=== PATIENT | male | born 1960 | race Two or more races ===

== ENCOUNTER 2019-05-22 09:00 | Emergency (ER) | payer OTHER ==
[2019-05-22 09:13] VITALS: BP 156/96
--- NOTE | 2019-05-22 09:18 | UC ---
Skin Complaint HPI - HPI Summary HPI Summary: Removed tick from chest yesterday; here for evaluation due to persistent erythema. Believes that the tick was attached overnight. No previous hx of Lyme disease. - History of Current Complaint Chief Complaint: [facility] Time Seen by Provider: 05/22/19 09:17 Stated Complaint: TICK BITE Onset/Duration: Sudden Onset Skin Exposure Onset/Duration: Days Ago - 2 Onset Severity: Mild Current Severity: Mild Pain Intensity: 0 Location: Discrete - right pectoral area. Aggravating Factor(s): Nothing Alleviating Factor(s): Nothing Associated Signs & Symptoms: Positive: Negative Related History: Insect Bite/Sting - Allergy/Home Medications Allergies/Adverse Reactions: Allergies Allergy/AdvReac Type Severity Reaction Status Date / Time No Known Allergies Allergy Verified 05/22/19 09:13 PMH/Surg Hx/FS Hx/Imm Hx Previously Healthy: Yes - Surgical History Surgical History: Yes Surgery Procedure, Year, and Place: appy,av fistula on nose - Family History Known Family History: Positive: Non-Contributory - Social History Occupation: Employed Full-time Lives: With Family Alcohol Use: Occasionally Substance Use Type: None Smoking Status (MU): Former Smoker Type: Cigarettes Amount Used/How Often: 1PPD Length of Time of Smoking/Using Tobacco: 20 years Have You Smoked in the Last Year: Yes When Did the Patient Quit Smoking/Using Tobacco: 10 years ago Household Exposure Type: Cigarettes, Cigars - Immunization History Most Recent Influenza Vaccination: season Review of Systems All Other Systems Reviewed And Are Negative: Yes Constitutional: Positive: Negative Skin: Positive: Negative Eyes: Positive: Negative ENT: Positive: Nasal Discharge - mild URI symptoms began yesterday Respiratory: Positive: Negative. Negative: Cough Cardiovascular: Positive: Negative Genitourinary: Positive: Negative Motor: Positive: Negative Neurovascular: Positive: Negative Musculoskeletal: Positive: Negative, Calf Tenderness. Negative: Arthralgia Neurological: Positive: Negative. Negative: Headache Psychological: Positive: Negative Is Patient Immunocompromised?: No Physical Exam Triage Information Reviewed: Yes Appearance: Well-Appearing, No Pain Distress Vital Signs: Initial Vital Signs Temp 98.2 F 05/22/19 09:09 Pulse 64 05/22/19 09:09 Resp 16 05/22/19 09:09 BP 156/96 05/22/19 09:09 Pulse Ox 97 05/22/19 09:09 ENT: Positive: Pharynx normal Neck: Positive: Supple, Nontender, No Lymphadenopathy Respiratory: Positive: Lungs clear, Normal breath sounds Skin Exam: Other - 1 cm area of erythema right pectoral area, small central area of discoloration. Course/Dx - Course Course Of Treatment: Discussed use of single dose of doxy for Lyme prophylaxis, and he agrees. Monitor for symptoms of Lyme. - Differential Diagnoses - Skin Complaint Differential Diagnoses: Cellulitis, Other - tick bite - Diagnoses Provider Diagnosis: Tick bite of chest wall Discharge ED - Sign-Out/Discharge Documenting (check all that apply): Patient Departure All imaging exams completed and their final reports reviewed: No Studies - Discharge Plan Condition: Stable Disposition: HOME Prescriptions: DOXYcycline CAP(*) [DOXYcycline 100MG CAP(*)] 200 mg PO ONCE #2 cap Patient Education Materials: Tick Bite (ED) Referrals: Irwin Royal MD [Primary Care Provider] - Additional Instructions: You will take a single dose of doxycycline 200mg for prevention of Lyme disease. This is about 80% effective in decreasing the risk of Lyme should the tick carry the bacteria. You can take this with food, but not within 2 hours of dairy product. Please ensure that you have a follow up blood pressure check within 2 weeks -- today's reading is elevated to 156/96. - Billing Disposition and Condition Condition: STABLE Disposition: Home
== END 2019-05-22 09:33 | disposition home or self-care (01) ==
LOC: UCEAST 09:00
DX: W57.XXXD Bitten or stung by nonvenomous insect and other nonvenomous arthropods, subsequent encounter (principal); S20.369 Insect bite (nonvenomous) of unspecified front wall of thorax; Y92.9 Unspecified place or not applicable; Z87.891 Personal history of nicotine dependence
CPT/HCPCS: 99212; G0463